=== PATIENT | female | born 1970 | race Caucasian/White ===

== ENCOUNTER 2018-07-18 02:08 | Emergency (ER) | payer OTHER ==
[2018-07-18 03:03] VITALS: BMI 36.6
--- NOTE | 2018-07-18 03:17 | PDOC ---
History of Present Illness - General Chief Complaint: Pain Stated Complaint: DIARRHEA/VOMITING X4 DAYS Time Seen by Provider: 07/18/18 03:17 History Source: Patient - History of Present Illness Initial Comments: 07/18/18 03:33 The patient is a 48 year old female with a PMH of SLE and IDDM who presents to our ED c/o 3 day h/o abdominal pain and vomiting. Pain is sharp, intermittent ( lasting approximately 10 minutes) diffuse and sometime more severe in her LLQ. Endorses 10+ of NBNB emesis and multiple episodes of watery non-bloody diarrhea. Not tolerating PO intake. Denies fevers/chills, recent travel, sick contacts. Post menopausal. Allergy: Penicillin Surgical: C/S x2, R knee Social: denies toxic habits PMD: Dr. Everett ([facility]) Past History - Past Medical History Allergies/Adverse Reactions: Allergies Allergy/AdvReac Type Severity Reaction Status Date / Time Penicillins Allergy Verified 11/21/13 11:39 Home Medications: Ambulatory Orders Albuterol Sulfate Inhaler - [Ventolin HFA Inhaler -] 1 - 2 inh PO QID #1 inhaler 11/21/13 Clarithromycin [Biaxin -] 500 mg PO BID #14 tablet 11/21/13 Insulin Glargine,Hum.rec.anlog [Lantus Solostar PEN -] 15 units SQ HS 11/21/13 Anemia: No Asthma: No Cancer: No Cardiac Disorders: No Diabetes: Yes - Suicide/Smoking/Psychosocial Hx Smoking Status: No Smoking History: Never smoked Have you smoked in the past 12 months: No Number of Cigarettes Smoked Daily: 0 Hx Alcohol Use: No Drug/Substance Use Hx: No Substance Use Type: None Hx Substance Use Treatment: No Review of Systems - Review of Systems Constitutional: No: Chills, Fever HEENTM: No: Recent change in vision Respiratory: No: Cough, Shortness of Breath Cardiac (ROS): No: Chest Pain, Lightheadedness, Palpitations, Syncope ABD/GI: Yes: Diarrhea, Nausea, Vomiting, Abdominal cramping : No: Burning, Dysuria *Physical Exam - Vital Signs Last Vital Signs Temp Pulse Resp BP Pulse Ox 98.6 F 90 19 143/70 100 07/18/18 02:25 07/18/18 02:25 07/18/18 02:25 07/18/18 02:25 07/18/18 02:25 - Physical Exam General Appearance: Yes: Nourished, Obese HEENT: positive: Normal Voice, Hearing Grossly Normal Neck: positive: Trachea midline, Supple Respiratory/Chest: positive: Lungs Clear, Normal Breath Sounds Cardiovascular: positive: S1, S2. negative: Murmur Gastrointestinal/Abdominal: positive: Normal Bowel Sounds, Soft Extremity: positive: Normal Capillary Refill, Normal Inspection Integumentary: positive: Normal Color, Dry, Warm Heart Score/ECG Review - ECG Impressions Comment:: 07/18/18 06:27 HR 80 NSR, no MARCELLUS/STD, TWI in Lead III c/w previous EKG; ED Treatment Course - LABORATORY CBC & Chemistry Diagram: 07/18/18 04:07 07/18/18 04:07 Medical Decision Making - Medical Decision Making 07/18/18 03:38 48 year old female with 3 day h/o sharp abdominal pain + NBNB emesis. VS unremarkable. LLQ TTP. Frontal diagnosis: colitis vs. diverticulitis vs. r/o ACS vs. pancreatitis vs. gastritis vs. gastroenteritis. PLAN: 1. CTAP 2. Lipase, Basic labs, Troponin x1 3. EKG 2. Hydration, Zofran, Tylenol Reassess. 07/18/18 06:08 CBC, CMP unremarkable UA clean 07/18/18 06:14 Patient reassessed @ bedside Symptomatically improved, states pain is now in LUQ CTAP negative for colitis, pancreatitis, shows diverticulum w/o diverticulitis. Will discharge home with return precautions and follow up evaluation by primary care doctor. *DC/Admit/Observation/Transfer Diagnosis at time of Disposition: Abdominal pain - Discharge Dispostion Disposition: HOME Condition at time of disposition: Good Decision to Admit order: No - Referrals - Patient Instructions Printed Discharge Instructions: Eating a Diet Rich in Fruits and Vegetables, Eating Healthfully: Tips to Make It Easier, DI for Weight Loss Additional Instructions: Regrese al Departamento de Emergencias para cualquier sntoma nuevo / que empeora / relacionado - Post Discharge Activity
[2018-07-18] MEDS ORDERED: ACETAMINOPHEN 1000 MG/100 ML VIAL (NON FORMULARY) IVPB ONE (03:38)
[2018-07-18] MEDS ORDERED: ONDANSETRON 4 MG/2 ML VIAL IVPUSH ONE (03:38)
[2018-07-18] MEDS ORDERED: SODIUM CHLORIDE 0.9% 500 ML INFUS.BAG IV ONE (03:38)
--- NOTE | 2018-07-18 03:40 | PDOC ---
Attending Attestation - Resident Resident Name: Keyonna Mena - ED Attending Attestation I have performed the following: I have examined & evaluated the patient, The case was reviewed & discussed with the resident, I agree w/resident's findings & plan - HPI HPI: 07/18/18 19:46 Pt has a hx of lupus and she comes with chest pain and abdominal pain. She has no fever and no chills. SHe had some vomiting. She states that she is on disability due to chronic lung disease due to lupus. 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 - Physicial Exam PE: 07/18/18 19:45 Pt has no fever or chills. Her breath sounds are normal bilat; she has no wheezing and she has no SOB. Her pulsocx is 99% on RA. SHe has no bad pain with palpation. no rebound and no guarding and she is feeling better with treatment that she received here. She has no CP at this time. No flank pain. She has no dysuria. She states that she has no pleuritic pain and no pain with exertion. Pt has no cough. She has been reassured and she will follow with her own doctors , stable for d/c home. - Medical Decision Making 07/18/18 06:16 Patient Name: ARIANE CARRILLO THIS IS A PRELIMINARY REPORT FROM [facility] [employer] [employer]IN[facility] DATE OF SERVICE: 2018-07-18 05:07:24 IMAGES: [id number] EXAM: CT ABDOMEN AND PELVIS WITH CONTRAST No bowel obstruction, colitis, diverticulitis, free fluid or free air. Normal appendix. At least one diverticulum descending colon, but no acute diverticulitis. Unremarkable pancreas and kidneys. Cholecystectomy. Nonspecific ground glass densities lung bases
[2018-07-18] MEDS ORDERED: ACETAMINOPHEN INJECTION 100 ML IVPB ONE (04:15)
[2018-07-18] MEDS ORDERED: ONDANSETRON 4 MG/2 ML VIAL ONE (04:16)
[2018-07-18 04:20] LABS: BASO % 0.2 % (0-2.0); EOS % 0.7 % (0-4.5); HEMOGLOBIN 13.2 GM/dL (10.7-15.3); LYMPH % 5.7 % (8-40); MCH 26.3 pg (25.7-33.7); MEAN CELL VOLUME 79.8 fl (80-96); MEAN PLT VOLUME 10.2 fl (7.5-11.1); MONO % 6.5 % (3.8-10.2); NEUT % 86.9 % (42.8-82.8); PLATELET COUNT 190 K/MM3 (134-434); RBC 5.01 M/mm3 (3.60-5.2); WHITE BLOOD COUNT 9.7 K/mm3 (4.0-10.0)
[2018-07-18 04:49] LABS: ALBUMIN 3.6 g/dl (3.4-5.0); ALK PHOS 109 U/L (45-117); ANION GAP 7 MMOL/L (8-16); BILIRUBIN,TOTAL 0.4 mg/dL (0.2-1); BLOOD UREA NITROGEN 7 mg/dL (7-18); CALCIUM 8.7 mg/dL (8.5-10.1); CHLORIDE 109 mmol/L (98-107); CO2 27 mmol/L (21-32); CREATININE 0.6 mg/dL (0.55-1.3); GLUCOSE,RANDOM 145 mg/dL (74-106); POTASSIUM 3.6 mmol/L (3.5-5.1); SGOT/AST 26 U/L (15-37); SGPT/ALT 27 U/L (13-61); SODIUM 143 mmol/L (136-145); TOT PROT 7.5 g/dl (6.4-8.2)
[2018-07-18 04:51] LABS: URINE APPEARANCE CLEAR; URINE BILIRUBIN NEGATIVE (NEGATIVE); URINE COLOR YELLOW; URINE GLUCOSE (UA) NEGATIVE (NEGATIVE); URINE KETONE NEGATIVE (NEGATIVE); URINE LEUK ESTERASE NEGATIVE (NEGATIVE); URINE NITRITE NEGATIVE (NEGATIVE); URINE PROTEIN NEGATIVE (NEGATIVE); URINE UROBILINOGEN 0.2 mg/dL (0.2-1.0)
[2018-07-18 06:37] VITALS: BP 130/72; PULSE 78; TEMP 98.2
--- NOTE | 2018-07-18 08:53 | EKG ---
Test Reason : Blood Pressure : / mmHG Vent. Rate : 085 BPM Atrial Rate : 085 BPM P-R Int : 170 ms QRS Dur : 074 ms QT Int : 366 ms P-R-T Axes : 032 -08 003 degrees QTc Int : 435 ms NORMAL SINUS RHYTHM CANNOT RULE OUT ANTERIOR INFARCT , AGE UNDETERMINED ABNORMAL ECG WHEN COMPARED WITH ECG OF 30-MAY-2012 18:23, NO SIGNIFICANT CHANGE WAS FOUND Confirmed by SHANON URIAS, BLANKA ([id number]) on 07/18/2018 8:52:41 AM Referred By: Confirmed By:BLANKA CLAUDIO MD
== END 2018-07-18 06:34 | disposition home or self-care (01) ==
LOC: JER 02:08
PROC: 3E033NZ Introduction of Analgesics, Hypnotics, Sedatives into Peripheral Vein, Percutaneous Approach (ICD-10-PCS; principal; 2018-07-18)
PROC: 3E033GC Introduction of Other Therapeutic Substance into Peripheral Vein, Percutaneous Approach (ICD-10-PCS; 2018-07-18)
DX: R10.9 Unspecified abdominal pain (principal); E11.9 Type 2 diabetes mellitus without complications; Z79.4 Long term (current) use of insulin; M32.9 Systemic lupus erythematosus, unspecified
CPT/HCPCS: 36415; 74177-TC; 80053; 81003; 82550; 83605; 83690; 84484; 84703; 85025; 93005; 93010; 96374; 96375; 99282-25; J0131

== ENCOUNTER 2023-02-05 14:40 | Emergency (ER) | payer OTHER ==
[2023-02-05 14:58] VITALS: BP 127/79; PULSE 92; RESP 18; TEMP 98.2; BMI 43.9
[2023-02-05] MEDS ORDERED: IBUPROFEN 600 MG TABLET (FP) PO ONE ×2 (15:23→15:28)
== END 2023-02-05 16:11 | disposition home or self-care (01) ==
LOC: JERFT 14:40
DX: S93.492A Sprain of other ligament of left ankle, initial encounter (principal); X50.1XXA Overexertion from prolonged static or awkward postures, initial encounter; Y93.01 Activity, walking, marching and hiking; Y92.009 Unspecified place in unspecified non-institutional (private) residence as the place of occurrence of the external cause
CPT/HCPCS: 73610-TC-LT-FY; 99283-25

== ENCOUNTER 2023-07-17 19:34 | Emergency (ER) | payer OTHER ==
[2023-07-17 19:42] VITALS: BP 131/54; PULSE 100; RESP 18; TEMP 98; BMI 38.4
== END 2023-07-17 21:35 | disposition home or self-care (01) ==
LOC: JERFT 19:34
DX: M25.572 Pain in left ankle and joints of left foot (principal); X50.1XXA Overexertion from prolonged static or awkward postures, initial encounter
CPT/HCPCS: 73610-TC-LT-FY; 73630-TC-LT; 99283-25

== ENCOUNTER 2024-03-14 15:48 | Emergency (ER) | payer OTHER ==
[2024-03-14 16:01] VITALS: TEMP 98.5; BMI 39.1
[2024-03-14 17:57] LABS: BASO % 0.9 % (0-2.0); HEMATOCRIT 41.4 % (32.4-45.2); HEMOGLOBIN 13.9 GM/dL (10.7-15.3); LYMPH % 21.5 % (8-40); MCH 25.6 pg (25.7-33.7); MCHC 33.6 g/dl (32.0-36.0); MEAN CELL VOLUME 76.2 fl (80-96); MEAN PLT VOLUME 9.7 fl (7.5-11.1); MONO % 5.9 % (3.8-10.2); NEUT % 70.7 % (42.8-82.8); PLATELET COUNT 237 10^3/uL (134-434); RBC 5.42 M/mm3 (3.60-5.2); RDW 15.1 % (11.6-15.6); WHITE BLOOD COUNT 14.5 K/mm3 (4.0-10.0)
[2024-03-14 18:02] LABS: HCG,QUALITATIVE URINE Negative
[2024-03-14 18:22] LABS: EPI CELLS 4.9 /uL (0-25.1); HYALINE CASTS 0.27 /uL (0-3.1); URINE APPEARANCE CLOUDY; URINE BACTERIA 3364.1 /uL (0-1359); URINE BILIRUBIN NEGATIVE (NEGATIVE); URINE COLOR YELLOW; URINE GLUCOSE (UA) NEGATIVE (NEGATIVE); URINE KETONE NEGATIVE (NEGATIVE); URINE LEUK ESTERASE 2+ (NEGATIVE); URINE NITRITE NEGATIVE (NEGATIVE); URINE PROTEIN TRACE (NEGATIVE); URINE UROBILINOGEN 0.2 mg/dL (0.2-1.0); URINE WBC 302.7 /uL (0-25.8)
[2024-03-14 18:32] LABS: CHLORIDE 103 mmol/L (98-107); SODIUM 136 mmol/L (136-145)
[2024-03-14 18:34] LABS: ALBUMIN 3.7 g/dl (3.4-5.0); CALCIUM 9.1 mg/dL (8.5-10.1)
[2024-03-14 18:35] LABS: BLOOD UREA NITROGEN 6.7 mg/dL (7-18); CO2 30 mmol/L (21-32); GLUCOSE,RANDOM 74 mg/dL (74-106)
[2024-03-14 18:38] LABS: CREATININE 0.7 mg/dL (0.55-1.3); SGOT/AST 67 U/L (15-37)
[2024-03-14 18:40] LABS: BILIRUBIN,TOTAL 0.7 mg/dL (0.2-1); TOT PROT 8.5 g/dl (6.4-8.2)
[2024-03-14 18:41] LABS: ALK PHOS 144 U/L (45-117)
[2024-03-14 18:44] LABS: ANION GAP 3 mmol/L (4-13); POTASSIUM 7.1 mmol/L (3.5-5.1); SGPT/ALT 25 U/L (13-61)
[2024-03-14] MEDS ORDERED: CEFTRIAXONE 1 G/50 ML PREMIX 50 ML IVPB ONE (20:59)
[2024-03-14] MEDS ORDERED: ACETAMINOPHEN INJECTION 100 ML ONE (20:59)
[2024-03-14] MEDS: SODIUM CHLORIDE 1,000 ML IV STA (21:05)
[2024-03-14] MEDS: ACETAMINOPHEN 1000 MG/100 ML BAG IVPB ONE (21:05)
[2024-03-14] MEDS: CEFTRIAXONE 1 GM in DEXTROSE 5%-WATER - 100 ML IVPB ONE (21:06)
[2024-03-14 22:12] VITALS: BP 147/68; PULSE 77; RESP 20
== END 2024-03-14 22:37 | disposition home or self-care (01) ==
LOC: JER 15:48
PROC: 3E03329 Introduction of Other Anti-infective into Peripheral Vein, Percutaneous Approach (ICD-10-PCS; principal; 2024-03-14)
PROC: 3E033NZ Introduction of Analgesics, Hypnotics, Sedatives into Peripheral Vein, Percutaneous Approach (ICD-10-PCS; 2024-03-14)
DX: N30.90 Cystitis, unspecified without hematuria (principal); N12 Tubulo-interstitial nephritis, not specified as acute or chronic; R35.0 Frequency of micturition; R10.9 Unspecified abdominal pain; Z20.822 Contact with and (suspected) exposure to COVID-19
CPT/HCPCS: 0241U-QW; 36415; 74176-TC; 80053; 81003; 84132; 84703; 85025; 87086; 87186; 99284-25; J0131